=== PATIENT | male | born 1955 | race Caucasian/White ===

== ENCOUNTER 2020-06-29 10:42 | Outpatient (CLI) | payer MEDICARE, OTHER, SELFPAY ==
--- NOTE | ~2020-06-29 | US_ITS ---
EXAMINATION: US carotid duplex BI DATE: 06/29/2020 13:21 INDICATION: Carotid stenosis. TECHNIQUE: Grayscale, color Doppler, and pulsed Doppler images of the cervical carotid arteries were obtained. The degree of vessel stenosis is placed in one of the following categories: normal, <50%, 5 0-69%, >=70% but less than near-occlusion, near-occlusion, or total occlusion. Note that percent sten osis relative to normal distal artery lumen diameter is indirectly measured from velocity measurement s as described by Jc, et al. Radiology 2003; [id number]:[id number]. COMPARISON: None. FINDINGS: RIGHT: The right common carotid artery (CCA) peak systolic velocity (PSV) is 77 cm/s. The right internal car otid artery (ICA) PSV is 60 cm/s. The right ICA end-diastolic velocity (EDV) is 22 cm/s. The right IC A/CCA PSV ratio is 0.8. Grayscale and color Doppler images yield an estimate of <50% diameter reducti on from plaque in the ICA. There is antegrade flow in the right vertebral artery. LEFT: The left CCA PSV is 77 cm/s. The left ICA PSV is 49 cm/s. The left ICA EDV is 18 cm/s. The left ICA/C CA PSV ratio is 0.6. Grayscale and color Doppler images yield an estimate of <50% diameter reduction from plaque in the ICA. There is antegrade flow in the left vertebral artery. IMPRESSION: 1. <50% stenosis in the right internal carotid artery. 2. <50% stenosis in the left internal carotid artery. Reviewed, dictated and finalized at location B. [facility]
== END 2020-06-29 10:43 | disposition home or self-care (01) ==
LOC: ANHIMG 10:47
PROVIDERS: PCP Family Medicine Adolescent Medicine; Visit Provider Family Medicine Adolescent Medicine
DX: I65.23 Occlusion and stenosis of bilateral carotid arteries (principal)
CPT/HCPCS: 93880

== ENCOUNTER 2021-09-04 00:50 | Day surgery (SDC) | payer MEDICARE, OTHER, SELFPAY ==
[2021-08-24 09:15] VITALS: BMI 25.2
[2021-09-04 06:53] VITALS: BP 129/85; PULSE 88; RESP 20; TEMP 36.8; O2SAT 98; BMI 25.2
[2021-09-04] MEDS: LACTATED RINGERS 1,000 ML 150 ML IV CONT (07:10)
[2021-09-04 07:14] LABS: Glucose Point of Care 180 mg/dl (65-105)
--- NOTE | 2021-09-04 07:47 | WPDGICN ---
Assessment and Plan Assessment and plan (1) Family history of colonic polyps: Code(s): Z83.71 - Family history of colonic polyps Status: Acute Assessment and Plan: Patient has 2 brothers with colon polyps. Plan is for surveillance colonoscopy now and consider this a 5-6 year intervals in the future. GI Consult Note Consult date/time: 09/04/21 07:47 HPI: Dioni Forrest is a 66 year old male Presents for screening colonoscopy. Patient's current weight appetite bowel movements are normal. He denies abdominal pain. He has had no bleeding. Family history is significant at least 2 brothers have had colon polyps. Patient's last colonoscopy 2013 was unremarkable. He presents today for neoplasia screening. Review of Systems Review of Systems: All systems reviewed & are unremarkable except as noted in HPI and below PMFSH Social History Social History Smoking status: Never smoker Alcohol intake: current Drinks per week: 2 Spiritual care concerns: No Meds Home Medications and Allergies Home Medications Medication Instructions Recorded Confirmed Type atorvastatin 10 mg tablet 10 mg PO DAILY #90 tablet 08/13/21 08/24/21 Rx metformin 500 mg tablet 500 mg PO DAILY #90 tablet 08/16/21 08/24/21 Rx quinapril 40 mg tablet 40 mg PO DAILY #90 tablet 08/16/21 08/24/21 Rx hydrochlorothiazide 25 mg PO DAILY 08/24/21 08/24/21 History Allergies Allergy/AdvReac Type Severity Reaction Status Date / Time No Known Allergies Allergy Unknown Verified 09/04/21 06:51 Vital Signs Vital Signs - 24 hr 09/04/21 06:53 Temperature 98.2 F Pulse Rate 88 Respiratory Rate 20 Blood Pressure 129/85 Pulse Oximetry 98 Exam Narrative: Physical exam reveals patient be alert. Vital signs stable. HEENT exam is unremarkable. Patient is anicteric. Lungs are clear to auscultation and percussion. Heart is without murmur or extra sounds. Abdominal exam bowel sounds are present soft nontender with no hepatosplenomegaly. Digital external rectal exam is normal.
--- NOTE | 2021-09-04 07:51 | WPDANESEPPF ---
Anes - Initial Pre Proc Eval Procedure: Operation Date: 09/04/21 08:00 Proposed Procedures p Screening Colonoscopy - Surjit Amezquita MD Date/Time: 09/04/21 07:51 Surgeon: Surjit Amezquita MD Pre Op Diagnosis: family hx of colon polyps Patient Data Age: 66 Gender: M Height: 1.7 m Weight: 73.1 kg Last Vital Signs Temp 98.2 F 09/04/21 06:53 Pulse 88 09/04/21 06:53 Resp 20 09/04/21 06:53 BP 129/85 09/04/21 06:53 Pulse Ox 98 09/04/21 06:53 Allergies Allergy/AdvReac Type Severity Reaction Status Date / Time No Known Allergies Allergy Unknown Verified 09/04/21 06:51 Home Medications Medication Instructions Recorded Confirmed Type atorvastatin 10 mg tablet 10 mg PO DAILY #90 tablet 08/13/21 08/24/21 Rx metformin 500 mg tablet 500 mg PO DAILY #90 tablet 08/16/21 08/24/21 Rx quinapril 40 mg tablet 40 mg PO DAILY #90 tablet 08/16/21 08/24/21 Rx hydrochlorothiazide 25 mg PO DAILY 08/24/21 08/24/21 History Laboratory Tests 09/04/21 07:09 POC Capillary Glucose 180 mg/dl H mg/dl (65-105) Patient hx anesthesia problems: none Family hx anesthesia problems: none Results Review: All pre-operative results and documents have been reviewed as part of the pre-operative evaluation. PMFSH Social History Social History Smoking status: Never smoker Alcohol intake: current Drinks per week: 2 Spiritual care concerns: No Anes - Eval Final PreProcedure Day of Procedure 09/04/21 07:51 Patient weight: normal Heart: regular rate and rhythm Lungs: clear to auscultation Airway: Mallampati scale class II Neurological: alert and oriented Last oral intake: >/= 8 hours ASA classification: II Emergent: no Anesthetic plan: proceed Anesthesia type and monitoring: general GIVS and standard monitoring Results Review: All pre-operative results and documents have been reviewed as part of the pre-operative evaluation. Informed Consent: The patient's anesthetic plan and its attendant risks and benefits were discussed with the patient/family/POA. Questions were solicited and answers provided to the satisfaction of the patient/family/POA.
[2021-09-04 08:14] VITALS: BP 107/73; PULSE 72; RESP 15; O2SAT 99
[2021-09-04 08:24] VITALS: BP 123/84; PULSE 70; RESP 14; O2SAT 99
[2021-09-04 08:34] VITALS: BP 122/86; PULSE 72; RESP 20; O2SAT 99
== END 2021-09-04 08:41 | disposition home or self-care (01) ==
PROVIDERS: PCP Family Medicine Adolescent Medicine; Visit Provider Internal Medicine Gastroenterology
PROC: 0DJD8ZZ Inspection of Lower Intestinal Tract, Via Natural or Artificial Opening Endoscopic (ICD-10-PCS; CPT 45378; principal; 2021-09-04 08:00)
DX: Z12.11 Encounter for screening for malignant neoplasm of colon (principal); K57.30 Diverticulosis of large intestine without perforation or abscess without bleeding; Z83.71 Family history of colonic polyps; Z79.84 Long term (current) use of oral hypoglycemic drugs
CPT/HCPCS: G0105; 82948; J2704; J7120

== ENCOUNTER 2023-04-11 12:26 | Outpatient (CLI) | payer MEDICARE, OTHER, SELFPAY ==
--- NOTE | ~2023-04-11 | XR_ITS ---
XR chest 2V 04/11/2023 12:47 Indication: 5 weeks of cough Procedure: 2 view chest Comparison: No prior studies for comparison. Findings: Heart size normal. No focal air space disease, pulmonary edema, pleural effusion or suspect ed pneumothorax. No acute osseous abnormality. Impression: 1: No acute cardiopulmonary disease. Reviewed, dictated and finalized at location A. Impression: 1: No acute cardiopulmonary disease.
== END 2023-04-11 12:27 | disposition home or self-care (01) ==
PROVIDERS: PCP Family Medicine Adolescent Medicine; Visit Provider Nurse Practitioner Family
DX: R05.9 Cough, unspecified (principal)
CPT/HCPCS: 71046